=== PATIENT | male | born 1955 | race Caucasian/White ===

== ENCOUNTER 2017-03-28 07:23 | Day surgery (SDC) | payer OTHER ==
[2017-03-28] MEDS ORDERED: CEFAZOLIN 1 GM/50 ML (PMX) 50 ML IVPB (08:00)
[2017-03-28] MEDS ORDERED: SOD CHLORIDE 0.9% 1,000 ML IV (08:00)
[2017-03-28] MEDS: CEFAZOLIN 1 GM/50 ML (PMX) 50 ML IVPB (10:30)
[2017-03-28] MEDS: MIDAZOLAM 1 MG/ML 2 ML INJ (10:30)
[2017-03-28] MEDS: SOD CHLORIDE 0.9% 500 ML (10:30)
[2017-03-28] MEDS: FENTAnyl 50 MCG/ML VIAL (10:30)
[2017-03-28] MEDS: LIDOCAINE 1%/EPI 30 ML INJ (10:35)
[2017-03-28] MEDS: POLYMYXIN/BACITRACIN 1L IRRIG IRR (10:40)
[2017-03-28] MEDS: HEPARIN 1000 UNITS/ML 10 ML INJ (10:40)
[2017-03-28] MEDS ORDERED: HYDROCODONE/APAP (5/325) TAB PO (11:00)
== END 2017-03-28 13:00 | disposition home or self-care (01) ==
LOC: SDS 07:23
DX: C67.9 Malignant neoplasm of bladder, unspecified (principal); I10 Essential (primary) hypertension
CPT/HCPCS: 36561; 76942

== ENCOUNTER 2017-05-03 09:54 | Emergency (ER) | payer OTHER ==
[2017-05-03 11:14] LABS: ADD MAN DIFF? NO
[2017-05-03 11:19] LABS: WHITE BLOOD COUNT 8.4 10^3/ul (4.8-10.8)
[2017-05-03 11:19] LABS: BASOPHILS % 0.5 % (0.0-2.0); EOSINOPHILS # 0.3 10^3/ul (0.0-0.5); HEMATOCRIT 23.5 % (42.0-52.0); HEMOGLOBIN 7.1 g/dl (14.0-18.0); LYMPHOCYTES # 0.9 10^3/ul (0.8-2.9); LYMPHOCYTES % 10.2 % (15.0-51.0); MEAN CORPUSCULAR HEMOGLOBIN 24.1 pg (29.0-33.0); MEAN CORPUSCULAR HGB CONC 30.2 g/dl (32.0-37.0); MEAN CORPUSCULAR VOLUME 79.7 fl (82.0-101.0); MEAN PLATELET VOLUME 8.7 fl (7.4-10.4); MONOCYTE # 0.6 10^3/ul (0.3-0.9); NEUTROPHIL # 6.7 10^3/ul (1.6-7.5); NEUTROPHILS % 78.9 % (39.0-77.0); PLATELET COUNT 469 10^3/UL (140-415); RED BLOOD COUNT 2.95 10^6/ul (4.70-6.10); RED CELL DISTRIBUTION WIDTH 16.7 % (11.5-14.5)
[2017-05-03 11:37] LABS: ANION GAP 16 (8-16); BLOOD UREA NITROGEN 20 mg/dl (7-20); CALCIUM 8.8 mg/dl (8.4-10.2); CARBON DIOXIDE 23 mmol/L (21-31); CHLORIDE 112 mmol/L (97-110); CREATININE 1.65 mg/dl (0.61-1.24); GLUCOSE 152 mg/dl (70-220); POTASSIUM 4.1 mmol/L (3.5-5.1); SODIUM 147 mmol/L (135-144)
[2017-05-03 11:43] LABS: PARTIAL THROMBOPLASTIN TIME 34.3 Sec (25.0-35.0); PT RATIO 1.3
[2017-05-03] MEDS ORDERED: SOD CHLORIDE 0.9% 250 ML IV ×2 (11:47→14:35)
[2017-05-03 12:24] LABS: PROTIME 16.3 Sec (11.9-14.9)
[2017-05-03 12:28] LABS: INR 1.29
[2017-05-03] MEDS: ACETAMINOPHEN 500 MG TAB PO (13:56)
[2017-05-03 15:58] LABS: IMMEDIATE SPIN CROSSMATCH 1 2
== END 2017-05-03 19:47 | disposition home or self-care (01) ==
LOC: E/R 19:47
DX: D59.1 Other autoimmune hemolytic anemias (principal); C67.9 Malignant neoplasm of bladder, unspecified; E87.0 Hyperosmolality and hypernatremia; R40.2142 Coma scale, eyes open, spontaneous, at arrival to emergency department; R40.2252 Coma scale, best verbal response, oriented, at arrival to emergency department; R40.2362 Coma scale, best motor response, obeys commands, at arrival to emergency department
CPT/HCPCS: 36415; 36430; 80048; 85025; 85610; 85730; 86850; 86900; 86901; 86920; 93005; 99285-25

== ENCOUNTER 2017-09-27 13:39 | Emergency (ER) | payer SELFPAY, OTHER | END 2017-09-27 15:04 | disposition left against medical advice (07) | LOC: E/R 15:04 | DX: Z53.21 Procedure and treatment not carried out due to patient leaving prior to being seen by health care provider (principal) ==